=== PATIENT | female | born 1985 | race Caucasian/White ===

== ENCOUNTER 2020-01-26 14:38 | Emergency (ER) | payer BC ==
[~2020-01-26] VITALS: Ht 157.5 cm; Wt 77.3 kg
[2020-01-26 15:55] VITALS: BP 132/99
[2020-01-26] MEDS ORDERED: ONDA4TAB6 PO (16:44)
[2020-01-26] MEDS ORDERED: BENZ-16 PO (16:44)
== END 2020-01-26 17:32 | disposition home or self-care (01) ==
LOC: ER 14:39
DX: J06.9 Acute upper respiratory infection, unspecified (principal); B34.9 Viral infection, unspecified; R07.89 Other chest pain; R11.0 Nausea; R51.9 Headache, unspecified; R53.83 Other fatigue; Z20.828 Contact with and (suspected) exposure to other viral communicable diseases; J45.909 Unspecified asthma, uncomplicated; Z79.899 Other long term (current) drug therapy
CPT/HCPCS: 87635; 99283; C9803